=== PATIENT | female | born 1955 | race Caucasian/White ===

== ENCOUNTER 2017-08-05 10:50 | Emergency (ER) | payer BC ==
--- NOTE | 2017-08-05 11:16 | Emergency Department Record ---
History of Present Illness - General Chief complaint: Extremity Problem Stated complaint: THINKS THERE'S A BLOOD CLOT IN HAND Time Seen by Provider: 08/05/17 11:05 Source: Patient Mode of Arrival: Ambulatory Limitations: No limitations - History of Present Illness Initial comments: 61 yo female presents with a left hand tender nodule after hitting it on a gate. She was concerned about a blood clot. She had a clot in the right leg years ago. She states the clot did not require any medication treatment however. No history or arterial occlusive disease. No PE. She has a very small nodule and bruise where she hit the hand. No forearm pain or upper arm pain. No swelling anywhere of the LUE. No cough or chest pain. MD Complaint: Other (hand bruise and pain) -: Days(s) (1) Location: Left -: Yes Arthralgia Radiation: Distal Quality: Aching Consistency: Constant Improves with: Nothing Worsens with: Palpation Associated Symptoms: Denies other symptoms - Related Data Home Medications Medication Instructions Recorded Confirmed Last Taken Aspirin 81 mg PO DAILY 08/05/17 08/05/17 1 Day Ago ~08/04/17 Cholecalciferol (Vitamin D3) 8,000 unit PO DAILY 08/05/17 08/05/17 1 Day Ago [Vitamin D3] ~08/04/17 Dicyclomine HCl 10 mg PO BID PRN 08/05/17 08/05/17 Unknown Octreotide Acetate 100 mcg IJ MONTHLY 08/05/17 08/05/17 Unknown Allergies Allergy/AdvReac Type Severity Reaction Status Date / Time No Known Drug Allergies Allergy Verified 08/05/17 11:14 Review of Systems Constitutional: Denies: Chills, Fever, Malaise, Weakness Eyes: Denies: Eye discharge ENT: Denies: Congestion, Throat pain Respiratory: Denies: Cough, Dyspnea, Hemoptysis, Stridor, Wheezes Cardiovascular: Denies: Chest pain, Palpitations, Syncope Endocrine: Denies: Fatigue, Polydipsia, Polyuria Gastrointestinal: Denies: Abdominal pain, Diarrhea, Nausea, Vomiting Genitourinary: Denies: Dysuria, Urgency Musculoskeletal: Reports: As per HPI, Arthralgia. Denies: Back pain, Joint swelling, Myalgia, Neck pain Skin: Reports: As per HPI, Bruising Neurological: Denies: Confusion, Headache, Numbness Hematological/Lymphatic: Reports: Blood Clots. Denies: Anemia, Easy bleeding, Easy bruising, Swollen glands Physical Exam - General General Appearance: Alert, Oriented x3, Cooperative, No acute distress - Head Head exam: Atraumatic, Normal inspection - Eye Eye exam: Normal appearance. negative: Conjunctival injection, Scleral icterus - ENT ENT exam: Normal exam, Mucous membranes moist Ear exam: Normal external inspection Nasal Exam: Normal inspection Mouth exam: Normal external inspection Teeth exam: Normal inspection - Neck Neck exam: Normal inspection, Full ROM. negative: Tenderness - Respiratory Respiratory exam: Normal lung sounds bilaterally. negative: Respiratory distress, Rhonchi, Stridor, Wheezes - Cardiovascular Cardiovascular Exam: Regular rate, Normal rhythm, Normal heart sounds Peripheral Pulses: 2+: Radial (R), Radial (L) - GI/Abdominal GI/Abdominal exam: Soft. negative: Tenderness - Rectal Rectal exam: Deferred - exam: Deferred - Extremities Extremities exam: Full ROM, Normal capillary refill, Tenderness. negative: Normal inspection, Pedal edema Image of Hand: 1 - approximately 2mm soft nodular area, mild surrounding bruise consistent with contusion, no swelling, brisk CR, No forearm or upper arm tenderness or swelling - Back Back exam: Denies: CVA tenderness (R), CVA tenderness (L) - Neurological Neurological exam: Alert, Oriented X3 - Psychiatric Psychiatric exam: Normal affect, Normal mood. negative: Agitated, Anxious - Skin Skin exam: Other (bruise on hand) Course - Reevaluation(s) Reevaluation #1: 08/05/17 11:16 The examination is consistent with a contusion no a DVT of the arm No arm or forearm swelling or tenderness DC with instructions for follow up and reasons to return Disposition Disposition: Discharge Clinical Impression: Contusion of hand, left Qualifiers: Encounter type: initial encounter Qualified Code(s): S60.222A - Contusion of left hand, initial encounter Disposition: Home, Self-Care Condition: (1) Good Instructions: Contusion in Adults (ED) Additional Instructions: Return if you have swelling, pain, tenderness on the forearm or upper arm See your doctor for a recheck of the hand bruise if not gone in 4-5 days Forms: Patient Portal Access Time of Disposition: 11:17 Quality - Quality Measures Quality Measures: N/A - Blood Pressure Screening Does Patient Have Any of the Following: No Blood Pressure Classification: Pre-Hypertensive BP Reading Systolic Measurement: 137 Diastolic Measurement: 88 Screening for High Blood Pressure: < Pre-Hypertensive BP, F/U Documented > [ [id number]] Pre-Hypertensive Follow-up Interventions: Referral to alternative/primary care provider.
== END 2017-08-05 11:42 | disposition home or self-care (01) ==
LOC: ER 10:50
DX: S60.222A Contusion of left hand, initial encounter (principal); W22.8XXA Striking against or struck by other objects, initial encounter; Z86.718 Personal history of other venous thrombosis and embolism
CPT/HCPCS: 99282